=== PATIENT | female | born 1945 | race Caucasian/White ===

== ENCOUNTER 2018-02-17 11:39 | Inpatient (IN) ==
--- NOTE | 2018-02-17 08:42 | Discharge Summary ---
Orders not resulted at time of discharge: Pending orders 02/17/18 08:18 XR shoulder complete RT [XR] Routine Hemoglobin and Hematocrit [HEME] Routine Date of Encounter: 02/18/18 Time of Encounter: 08:11 - Discharge Diagnosis (1) Rotator cuff tear arthropathy of right shoulder Priority: Primary Status: Chronic (2) Status post reverse total arthroplasty of right shoulder Priority: Primary Status: Acute (3) Old myocardial infarction Priority: Secondary Status: Chronic (4) CHF (congestive heart failure), NYHA class II Priority: Secondary Status: Chronic Qualifiers: Congestive heart failure type: combined Congestive heart failure chronicity : chronic Qualified Code(s): I50.42 - Chronic combined systolic (congestive) and diastolic (congestive) heart failure (5) Morbid obesity with BMI of 40.0-44.9, adult Priority: Secondary Status: Chronic (6) Hypertension Priority: Secondary Status: Chronic Qualifiers: Hypertension type: unspecified Qualified Code(s): I10 - Essential (primary ) hypertension (7) Hyperlipidemia Priority: Secondary Status: Chronic Qualifiers: Hyperlipidemia type: unspecified Qualified Code(s): E78.5 - Hyperlipidemia , unspecified (8) COPD (chronic obstructive pulmonary disease) Priority: Secondary Status: Chronic Qualifiers: COPD type: unspecified COPD Qualified Code(s): J44.9 - Chronic obstructive pulmonary disease, unspecified (9) Chronic kidney disease, stage III (moderate) Priority: Secondary Status: Chronic (10) Type 2 diabetes mellitus Priority: Secondary Status: Chronic Qualifiers: Diabetes mellitus continuous churn buttermaker insulin use: unspecified longterm insulin use status Diabetes mellitus complication status: without complication Qualified Code(s): E11.9 - Type 2 diabetes mellitus without complications - Hospital Course Hospital course: Ms. Lock is a 72 year old female The patient had an uneventful postoperative course. They received antibiotics and physical therapy and were discharged in stable condition. There will follow -up in the office in 2 weeks. - Time Spent with Patient Total time spent providing and/or coordinating discharge services: - Discharge Medications Home Medications: Albuterol Sulfate [Ventolin Hfa] 1 puff IH DAILY 12/05/15 [History] Atorvastatin [Lipitor] 20 mg PO HS 12/05/15 [History] Budesonide/Formoterol 160/4.5 [Symbicort 160/4.5] 2 puff IH BID 12/05/15 [ History] Calcium Carbonate [Calcium] 600 mg PO QAM 12/05/15 [History] Glimepiride [Amaryl] 4 mg PO QAM 12/05/15 [History] Insulin ASPART [Novolog] 30 unit SQ QAM 12/05/15 [History] Lisinopril [Zestril] 20 mg PO DAILY 12/05/15 [History] Meloxicam [Mobic] 7.5 mg PO DAILY #10 tablet 12/05/15 [Rx] Metoclopramide [Reglan] 10 mg PO TID 12/05/15 [History] Metoprolol [Lopressor] 50 mg PO QAM 12/05/15 [History] Montelukast [Singulair] 10 mg PO DAILY 12/05/15 [History] Potassium Chloride [Klor-Con] 10 meq PO QAM 12/05/15 [History] Ropinirole HCl [Requip] 1 mg PO BID 12/05/15 [History] hydroCHLOROthiazide [Hydrochlorothiazide] 25 mg PO DAILY 12/05/15 [History] Promethazine [Phenergan] 12.5 mg PO Q8HR #16 tablet 12/06/15 [Rx] Acetaminophen [8 Hour] 650 mg PO DAILY #7 tablet.er 02/07/18 [Rx] Furosemide [Lasix] 20 mg PO DAILY 02/17/18 [History] HYDROcodone/Acet 5/325 mg [[place] 5-325 mg] 1 tab PO Q6H PRN 4 Days #20 tab 02/17 [Rx] HYDROcodone/Acet 5/325 mg [[place] 5-325 mg] 1 tab PO Q6H PRN 5 Days #20 tab 02/17 [Rx] Insulin ASPART [Novolog Flexpen] 50 unit SQ QPM 02/17/18 [History] Linagliptin [Tradjenta] 5 mg PO DAILY 02/17/18 [History] Allergies/Adverse Reactions: 3 Allergy/AdvReac Type Severity Reaction Status Date / Time codeine Allergy Difficulty Verified 02/17/18 13:50 Breathing Penicillins [PCN] Allergy Difficulty Verified 02/17/18 13:50 Breathing aspirin [From Percodan] AdvReac Nausea Verified 02/17/18 13:50 Oxycodone [From Percodan] AdvReac Nausea Verified 02/17/18 13:50 Primary care physician: Edna Rey CNP - Patient Status Disposition: Home, Self-Care Condition: Good Functional capacity at discharge: uses cane/walker Overall status at discharge: patient is progressing back to baseline - Discharge Instructions Follow Up With: Edna Rey CNP [Primary Care Provider] -
--- NOTE | 2018-02-17 11:08 | Anesthesia Evaluation PreOp ---
Date of Encounter: 02/17/18 Time of Encounter: 12:37 - Past History Planned Operation: Right Total Shoulder Cardiac History: NV, CHF (15 years ago), HTN, Hyperlipidemia Pulmonary History: Former smoker (quit 25 years ago), COPD (home O2 2L/min continuously), JANNET Dx (uses CPAP) CARROTER History: Denies Any Significant HX Other Medical History: Renal (stage 3 CKD), Diabetes Type II, GERD, Other ( obesity BMI=44.3) Anesthesia History: No Prior Anesthetic Complications, Past Anesthesia Alcohol Use: none Drug use: none Medications and Allergies Albuterol Sulfate [Ventolin Hfa] 18 gm IH BID 12/05/15 [History] Atorvastatin [Lipitor] 20 mg PO HS 12/05/15 [History] Budesonide/Formoterol 160/4.5 [Symbicort 160/4.5] 1 puff IH BIDR 12/05/15 [ History] Calcium Carbonate [Calcium] 600 mg PO QAM 12/05/15 [History] Glimepiride [Amaryl] 4 mg PO QAM 12/05/15 [History] Hydrocodone/Acetaminophen [[place] 5-325 Tablet] 1 tab PO Q6HR PRN #16 tab [Rx] Insulin ASPART [Novolog] 0 unit SQ TID 12/05/15 [History] Insulin Glargine,Hum.rec.anlog [Lantus Solostar] 20 unit SQ QAM 12/05/15 [ History] Insulin Glargine,Hum.rec.anlog [Lantus Solostar] 60 unit SQ HS 12/05/15 [History ] Lisinopril [Zestril] 20 mg PO DAILY 12/05/15 [History] Meloxicam [Mobic] 7.5 mg PO DAILY #10 tablet 12/05/15 [Rx] Metoclopramide [Reglan] 10 mg PO TID 12/05/15 [History] Metoprolol [Lopressor] 50 mg PO QAM 12/05/15 [History] Montelukast [Singulair] 10 mg PO DAILY 12/05/15 [History] Potassium Chloride [Klor-Con] 10 meq PO QAM 12/05/15 [History] Ropinirole HCl [Requip] 1 mg PO BID 12/05/15 [History] hydroCHLOROthiazide [Hydrochlorothiazide] 25 mg PO DAILY 12/05/15 [History] Gabapentin [Neurontin] 100 mg PO BID #20 capsule 12/06/15 [Rx] Promethazine [Phenergan] 12.5 mg PO Q8HR #16 tablet 12/06/15 [Rx] Acetaminophen [8 Hour] 650 mg PO DAILY #7 tablet.er 02/07/18 [Rx] HYDROcodone/Acet 5/325 mg [[place] 5-325 mg] 1 tab PO Q6H PRN 4 Days #20 tab 02/17 [Rx] HYDROcodone/Acet 5/325 mg [[place] 5-325 mg] 1 tab PO Q6H PRN 5 Days #20 tab 02/17 [Rx] 3 Allergy/AdvReac Type Severity Reaction Status Date / Time codeine Allergy Rash Verified 02/01/18 14:26 Penicillins [PCN] Allergy Rash Verified 02/01/18 14:26 aspirin [From Percodan] AdvReac Nausea Verified 02/01/18 14:26 Oxycodone [From Percodan] AdvReac Nausea Verified 02/01/18 14:26 - Meds/Allergy Pre-op Review Medications Reviewed: Yes Allergies Reviewed: Yes Beta Blockers on Current Med List: No Anesthesia Results - Labs Laboratory Tests 02/01/18 02/01/18 02/03/18 14:40 14:40 12:39 WBC 14.0 H Hgb 15.4 Hct 46.5 H Plt Count 239 PT 11.1 INR 1.0 APTT 29.7 Sodium 137 Potassium 4.4 BUN 39 H Creatinine 1.51 H - Imaging EKG: report reviewed (02/01/2018 SINUS RHYTHM MARKED LEFT AXIS DEVIATION INCOMPLETE RIGHT BUNDLE BRANCH BLOCK POSSIBLE ANTERIOR MYOCARDIAL INFARCTION, PROBABLY OLD MODERATE T-WAVE ABNORMALITY, CONSIDER LATERAL ISCHEMIA) Anesthesia Exam O2 Sat Height 1.57 m Height 1.57 m Weight 109.769 kg Weight 109.769 kg O2 Sat by Pulse Oximetry 91 Vital Signs Temp Pulse Resp BP Pulse Ox 98.3 F 86 18 125/72 91 02/17/18 12:11 02/17/18 12:11 02/17/18 12:11 02/17/18 12:11 02/17/18 12:11 Blood Glucose* 171 Height: 5'2'' Weight: 242 lbs NPO (# of Hours): 8 Pain Scale: 0 Pain Scale Used: Numeric (1 - 10) - HEENT Pupil (Motor): EOMI Mallampati: III Teeth: Edentulous Denture Type: Upper: Complete, Lower: Complete Oral Opening: Greater than 3 - CARROTER LOC: Oriented CARROTER Motor: Normal RUE, Normal LUE, Normal RLE, Normal LLE, Normal Face CARROTER Sensory: Normal: RUE, LUE, Face, Deficit: RLE, LLE - Cardiac Rhythm: Regular Murmur: None - Pulmonary Breath Sounds: bilateral Clear Respiratory Effort: Symmetrical Anesthesia Assess/Plan ASA Score: 4 Modified [place]ie Scale for Level of Consciousness: Cooperative, oriented, and tranquil Anesthetic Plan: General, Regional Monitoring Plan: Standard Monitors Recovery Plan: PACU
[2018-02-17] MEDS ORDERED: Albuterol 2.5 MG/3 ML NEBULIZER IH ONE (12:18)
--- NOTE | 2018-02-17 12:30 | History & Physical Report ---
Date of Encounter: 02/17/18 Time of Encounter: 12:29 24 Hour HP Update - Instructions Instructions: If the History and Physical is less than 30 days old and was completed prior to A.M. admission and or procedure and has NOT been updated on calendar day of procedure please complete this update prior to performing procedure. - Update Patient reports changes in Medical Condition: No Changes in examination, assessment, or condition: No Changes in Medication: No Preop tests/diagnostics Reviewed: Yes Surgery Remains Indicated: Yes Consent for Planned Operative Procedure(s) Verified: Yes - Pre-Operative Checklist Preoperative Checklist Indicated: No Prophylactic Antibiotic Ordered: Yes Is VTE Prophylaxis Indicated?: Yes
[2018-02-17] MEDS ORDERED: Clindamycin 900 MG/50 ML 900 MG/50 ML IV.SOLN IVPB ONE (12:45)
[2018-02-17] MEDS ORDERED: 0.9 % Sodium Chloride 500 ML IVC SCH (12:45)
[2018-02-17] MEDS ORDERED: *HR* FentaNYL (PF) 100 MCG/2 ML VIAL ONE ×2 (13:33→13:34)
[2018-02-17] MEDS ORDERED: *HR* Propofol 200 MG/20 ML VIAL IVP ONE (13:33)
[2018-02-17] MEDS ORDERED: *HR* Rocuronium Bromide 50 MG/5 ML VIAL ONE (13:36)
[2018-02-17] MEDS ORDERED: *HR* Succinylcholine 200 MG/10 ML VIAL IVP ONE (13:36)
[2018-02-17] MEDS ORDERED: Lidocaine -MPF 4% 5 ML AMPUL ONE (13:36)
[2018-02-17] MEDS ORDERED: Lidocaine -MPF 2% 2 ML VIAL ONE (13:36)
[2018-02-17] MEDS ORDERED: *HR* Midazolam HCl 2 MG/2 ML VIAL ONE (13:50)
[2018-02-17] MEDS ORDERED: ROPIVACAINE HCL/PF 0.5% 30 ML VIAL ONE (13:51)
[2018-02-17] MEDS ORDERED: Bupivacaine/Clonidine Syringe 1 EACH SYRINGE ONE (13:51)
--- NOTE | 2018-02-17 14:07 | Anesthesia Procedures ---
Date of Encounter: 02/17/18 Time of Encounter: 14:05 Procedures: Anesthesia - Nerve Block Procedure Date: 02/17/18 Time: 14:05 Allergies/Adv Reactions: codeine, pcn, asa, oxycodone Surgical Procedure: right tsr Checklist: Correct Patient Identifier, Correct procedure, History checked Correct side: Right Blood Thinner: No Monitor Applied: EKG, BP, Pulse Oximetry Supplemental Oxygen via Nasal Cannula (L/min): 2 Sedation: Versed (mg): 1 Sedation: Fentanyl (mcg): 50 Indication: Post Op Analgesia (request per dr masters for post op pain control) Pre-op Neuro Deficits: No Block Type: Supraclavicular, Other (scp/icb) Catheter placed: No Sterile Technique: Yes Ultrasound used: Yes Anatomy identified: Yes Visual spread of Local: Yes Neuro Stimulation: No Blood on Needle Aspiration: No Smooth Injection of Local: Yes Pain with Injection of Local: No Prep: Chlorhexadine Needle: 22 x 50 mm Stimuplex Local: 0.25% Bupivicaine w/Clonidine 20 mcg/cc (for scp/icb 10ml), Ropivacaine ( 0.5% 30ml) Volume (cc): 40 Number of Attempts: 1 Complications: None/effective block Vitals: Vital Signs/O2 Sat/Glucose, Most Current Temp Pulse Resp BP Pulse Ox 02/17/18 14:04 89 18 166/99 91 02/17/18 13:56 84 18 147/93 91 02/17/18 13:06 18 95 02/17/18 12:48 95 02/17/18 12:11 98.3 F 86 18 125/72 91 Comments: pt tolerated procedure well. no complications. vss.
[2018-02-17] MEDS ORDERED: *HR* HYDROmorphone 2 MG TABLET PO PRN (14:29)
[2018-02-17] MEDS ORDERED: *HR* Labetalol 20 MG/4 ML SYRINGE IVP PRN (14:29)
[2018-02-17] MEDS ORDERED: *HR* Promethazine 25 MG/ML VIAL IVP PRN (14:29)
[2018-02-17] MEDS ORDERED: *HR* HYDROmorphone (PF) 1 MG/ML SYRINGE IVP PRN (14:29)
[2018-02-17] MEDS ORDERED: Ondansetron 4 MG/2 ML VIAL ONE (15:18)
[2018-02-17] MEDS ORDERED: Dexamethasone 4 MG/ML VIAL ONE (15:18)
--- NOTE | 2018-02-17 15:52 | Orthopedic Operative Note ---
Date of procedure: 02/17/18 Pre-op diagnosis: Right shoulder cuff tear arthropathy Post-op diagnosis: same Procedure: Procedure: Total Shoulder Replacment Reverse, right Estimated blood loss: 100 cc Hardware: Metal and polyethylene replacement: Arthrex 24, +2 ,30 mm screw glenoid baseplate, 2 4.5 screws. 2 5.5 screw, 39+4 glenosphere, 9 apex humeral stem, poly insert 6 Exam Under anesthesia: Full motion no instability Procedural Notes: Irreparable tear supraspinatus tendon. Operative procedure: The patient was brought to the operating room and placed on the operating room table. After general anesthesia was administered the operative shoulder was examined. Findings were noted. The patient was placed in the modified beachchair position. All pressure points were padded appropriately. And the head was stabilized in the neutral position. The operative extremity was prepped and draped in the sterile surgical fashion. The patient received IV antibiotics prior to skin incision. A standard deltopectoral approach was made to the operative shoulder. Incision was made to the skin and subcutaneous tissue,hemo stasis was obtained with Bovie cautery. Using careful blunt dissection the cephalic vein was identified and mobilized medially. The deltopectoral interval was developed and the clavipectoral fascia was incised. The subscap was released off the lesser tuberosity and tagged with #2 FiberWire suture Was irreparable.. The humerus was dislocated patient noted to have irreparable tear supraspinatus tendon, and the humeral cut was made along the anatomic neck. Anterior and posterior Bankart retractors were placed to expose the glenoid. The glenoid guide was seated and the centering hole was made. It was reamed with the appropriate reamer. The 24, +2, 30 mm screw, base plate was seated and secured with (2) 4.5 screws and 2 5.5 screw. The baseplate was irrigated and dried and the 39+4 Glenosphere was seated and secured with the Carbajal taper. The Carbajal taper was tested and found to be secure the humerus was redislocated and prepared with the diaphyseal reamers, followed by a broaching process up to the appropriate size 9 apex in the patient 's anatomic version. The metaphyseal reamer was then utilized. Trial reduction found the shoulder to be relocatable. Trial components were removed and 9 apex stem was impacted in place in the patient's anatomic version. Trial reduction found the shoulder to be relocatable and stable with the appropriate 6 Madeleine. Trial component was removed and the real implant was seated and secured the shoulder was reduced. The shoulder had excellent motion and excellent stability and no evidence of dislocation. The deep tissue was irrigated with pulse irrigation. The deltopectoral interval was closed with a running #1 PDS suture, subcutaneous tissue was irrigated and closed with 0 PDS suture, the skin was closed with Dermabond. The patient was placed in a sterile dressing, abduction brace and extubated. The patient was then transferred to the recovery room in stable condition. Anesthesia: GETA Surgeon: Andrea Gallagher Was there an clinical services assistant present: No Estimated blood loss (cc): 100 Condition: stable Disposition: PACU
[2018-02-17 16:38] LABS: Hematocrit 39.6 % (35.3-44.9); Hemoglobin 13.1 g/dL (11.5-15.4)
--- NOTE | 2018-02-17 16:47 | Anesthesia Evaluation Post Op ---
Date of Encounter: 02/17/18 Time of Encounter: 16:46 - Vital Signs Vital Signs: Vital Signs/O2 Sat, Most Current Temp Pulse Resp BP Pulse Ox 97.3 F L 87 20 130/78 91 02/17/18 16:30 02/17/18 16:40 02/17/18 16:40 02/17/18 16:40 02/17/18 16:40 - Lungs Lungs: Clear Ascult./Percussion - Airway Airway: Non-obstructed - Cardiovascular Regular Rate - Mental Status Mental Status: Alert & Oriented, Answers Appropriately - Pain Pain Scale: 3 Pain Scale used: Numeric (1 - 10) - Nausea Vomiting Nausea Vomiting: Not Present - Hydration Hydration: Ice chips, Has not voided - Discharge PostOp Status: Transfer Patient to floor
[2018-02-17] MEDS ORDERED: traMADol 50 MG TABLET PO PRN (16:57)
[2018-02-17] MEDS ORDERED: Sennosides 8.6 MG TABLET PO PRN (16:57)
[2018-02-17] MEDS ORDERED: *HR* HYDROcodone/Acet 10/325 mg TABLET PO PRN (16:57)
[2018-02-17] MEDS ORDERED: Temazepam 15 MG CAPSULE PO PRN (16:57)
[2018-02-17] MEDS ORDERED: *HR* Dextrose 50 % in Water (Syg) 50 ML SYRINGE IVP PRN (16:57)
[2018-02-17] MEDS ORDERED: D5% in Water 1,000 ML IVC PRN (16:57)
[2018-02-17] MEDS ORDERED: *HR* HYDROcodone/Acet 5/325 mg TABLET PO PRN (16:57)
[2018-02-17] MEDS ORDERED: MOM Conc 10 ML UD.LIQ PO PRN (16:57)
[2018-02-17] MEDS ORDERED: Dextrose Gel 15 GM/37.5 ML TUBE PO PRN ×2 (16:57)
[2018-02-17] MEDS ORDERED: Ringers Solution, Lactated 1,000 ML IVC SCH (16:57)
[2018-02-17] MEDS ORDERED: Ondansetron 4 MG/2 ML VIAL IVP PRN (16:57)
[2018-02-17] MEDS ORDERED: Naloxone 0.4 MG/ML INJ IVP PRN (16:57)
[2018-02-17] MEDS ORDERED: INSULIN ASPART 50 UNIT SQ SCH (18:00)
[2018-02-17] MEDS ORDERED: *HR* Enoxaparin 30 MG/0.3 ML SYRINGE SQ SCH (18:00)
[2018-02-17] MEDS ORDERED: Ipratropium/Albuterol Neb 3 ML IH PRN (19:52)
[2018-02-17] MEDS: rOPINIRole 1 MG TABLET PO SCH (19:59)
[2018-02-17] MEDS: *HR* Enoxaparin 30 MG/0.3 ML SYRINGE SQ SCH (20:04)
[2018-02-17] MEDS: Insulin LISPRO 300 UNITS/3 ML VIAL SQ SCH (20:06)
[2018-02-17] MEDS: Budesonide/Formoterol 160/4.5 1 PUFF INH IH SCH (20:58)
[2018-02-17] MEDS ORDERED: Insulin LISPRO 300 UNITS/3 ML VIAL SQ SCH (21:00)
[2018-02-17] MEDS: Clindamycin 900 MG/50 ML 900 MG/50 ML IV.SOLN IVPB SCH (23:23)
[2018-02-18 01:07] LABS: Hematocrit 38.7 % (35.3-44.9); Hemoglobin 12.8 g/dL (11.5-15.4)
[2018-02-18] MEDS: *HR* Enoxaparin 30 MG/0.3 ML SYRINGE SQ SCH (04:57)
[2018-02-18] MEDS: Clindamycin 900 MG/50 ML 900 MG/50 ML IV.SOLN IVPB SCH (06:04)
--- NOTE | 2018-02-18 06:50 | Orthopedics Progress Note ---
Date of Encounter: 02/18/18 Time of Encounter: 06:50 - Assessment and Plan (1) Rotator cuff tear arthropathy of right shoulder Current Visit: No Status: Chronic (2) Status post reverse total arthroplasty of right shoulder Current Visit: No Status: Acute (3) Old myocardial infarction Current Visit: Yes Status: Chronic (4) CHF (congestive heart failure), NYHA class II Current Visit: Yes Status: Chronic Qualifiers: Congestive heart failure type: combined Congestive heart failure chronicity : chronic Qualified Code(s): I50.42 - Chronic combined systolic (congestive) and diastolic (congestive) heart failure (5) Morbid obesity with BMI of 40.0-44.9, adult Current Visit: Yes Status: Chronic (6) Hypertension Current Visit: Yes Status: Chronic Qualifiers: Hypertension type: unspecified Qualified Code(s): I10 - Essential (primary ) hypertension (7) Hyperlipidemia Current Visit: Yes Status: Chronic Qualifiers: Hyperlipidemia type: unspecified Qualified Code(s): E78.5 - Hyperlipidemia , unspecified (8) COPD (chronic obstructive pulmonary disease) Current Visit: Yes Status: Chronic Qualifiers: COPD type: unspecified COPD Qualified Code(s): J44.9 - Chronic obstructive pulmonary disease, unspecified (9) Chronic kidney disease, stage III (moderate) Current Visit: Yes Status: Chronic (10) Type 2 diabetes mellitus Current Visit: Yes Status: Chronic Qualifiers: Diabetes mellitus group home insulin use: unspecified group home insulin use status Diabetes mellitus complication status: without complication Qualified Code(s): E11.9 - Type 2 diabetes mellitus without complications Subjective Interval history: Patient was seen this morning doing well without complaints. Afebrile vital signs stable. Operative extremity: Neurovascularly intact Dressing clean dry and intact Calves nontender Assessment and plan: Continue with postoperative care Discharged today Objective Vital signs: Vital Signs Temp Pulse Resp BP Pulse Ox 02/18/18 03:41 98.4 F 89 18 123/76 91 02/18/18 00:03 98.4 F 103 18 120/66 91 02/17/18 23:26 91 02/17/18 21:25 19 92 02/17/18 21:09 18 89 02/17/18 20:58 16 90 02/17/18 19:48 97.7 F 106 20 140/85 02/17/18 19:36 92 02/17/18 19:20 97.7 F 106 20 142/88 94 02/17/18 17:46 92 16 129/79 87 02/17/18 17:19 98.5 F 88 16 149/85 88 02/17/18 17:04 98.5 F 90 16 131/75 88 02/17/18 16:40 87 20 130/78 91 02/17/18 16:30 97.3 F L 87 20 134/69 91 02/17/18 16:20 88 20 115/63 87 02/17/18 16:10 91 20 140/76 89 02/17/18 16:00 98.5 F 89 20 120/77 91 02/17/18 14:44 89 151/77 89 02/17/18 14:29 88 142/80 89 02/17/18 14:16 87 18 140/83 91 02/17/18 14:04 89 18 166/99 91 02/17/18 13:56 84 18 147/93 91 02/17/18 13:06 18 95 02/17/18 12:48 95 02/17/18 12:11 98.3 F 86 18 125/72 91 Intake and Output 02/17/18 02/17/18 02/18/18 15:59 23:59 07:59 Intake Total 360 / 360 850 / 850 Output Total 780 / 780 0 / 0 Balance -420 / -420 850 / 850 Intake: IV Fluids 50 / 50 Cleocin Premix 900 MG/50 ML 900 50 / 50 mg In 50 ml @ 50 mls/hr IVPB Q8H [facility] Rx#:[id number] Oral 360 / 360 800 / 800 Output: Urine 680 / 680 0 / 0 Estimated Blood Loss 100 / 100 Other: # Voids 1 Weight 109.769 kg 110.2 kg Blood Glucose* 171 373 Patient Weight 02/18/18 23:59 Weight 110.2 kg - Labs CBC & BMP: 02/18/18 00:41 Labs: Abnormal lab results POC Glucose 371 mg/dL (70-99) H 02/17/18 20:10 - VTE Documentation of Mechanical Device: Venous foot pump, device Consult Discharge Plan - Plan Referrals: Edna Rey, MEMBERSHIP CORRESPONDENT [Primary Care Provider] -
[2018-02-18] MEDS: Insulin LISPRO 300 UNITS/3 ML VIAL SQ SCH (08:15)
[2018-02-18] MEDS: rOPINIRole 1 MG TABLET PO SCH (08:59)
[2018-02-18] MEDS ORDERED: hydroCHLOROthiazide 25 MG TABLET PO SCH (09:00)
[2018-02-18] MEDS ORDERED: Furosemide 20 MG TABLET PO SCH (09:00)
[2018-02-18] MEDS ORDERED: TRADJENTA 5MG PO SCH (09:00)
[2018-02-18] MEDS ORDERED: *HR* Glimepiride 4 MG TABLET PO SCH (09:00)
[2018-02-18] MEDS ORDERED: INSULIN ASPART 30 UNIT SQ SCH (09:00)
[2018-02-18] MEDS ORDERED: Lisinopril 20 MG TABLET PO SCH (09:00)
--- NOTE | 2018-02-18 10:38 | Physician Discharge Referral ---
Home Health/Hosp Referral Info Transfer to: Home Health Attending Provider: Elliott - Diagnosis (1) Status post reverse total arthroplasty of right shoulder Priority: Primary Status: Acute (2) Rotator cuff tear arthropathy of right shoulder Priority: Primary Status: Chronic (3) CHF (congestive heart failure), NYHA class II Priority: Secondary Status: Chronic (4) COPD (chronic obstructive pulmonary disease) Priority: Secondary Status: Chronic (5) Chronic kidney disease, stage III (moderate) Priority: Secondary Status: Chronic (6) Hyperlipidemia Priority: Secondary Status: Chronic (7) Hypertension Priority: Secondary Status: Chronic (8) Morbid obesity with BMI of 40.0-44.9, adult Priority: Secondary Status: Chronic (9) Type 2 diabetes mellitus Priority: Secondary Status: Chronic - Respiratory Orders Smoking Cessation: Smoking cessation has been advised. For more information, call the [place] Tobacco Quit Line at 4-314-DGUL-NOW. - Diet/Nutrition Diet/Nutrition Orders: Regular - Activity Activity Orders: Ambulate, Chair - Services Needed Following services are medically necessary services: Nursing, Home Health Aide, Physical Therapy, Occupational Therapy Home Care Orders: Opsite dressing, leave intact until first post-operative visit. Zipline/Donovan in place, plan to remove at post-operative day #14-16. If dressing becomes >50% saturated, contact office, remove dressing and place appropriate dressing in its place. Do not allow for dressing to get wet. Shoulder Precautions x 6 weeks. Apply cold therapy wrap 3-6x/day for 20 minutes at a time. Encourage ambulation throughout the day. Use Incentive spirometer 10x/hour. Elevate affected extremity above heart as tolerated. NWB to affected upper extremity x 6 weeks. Will remove brace at first post-operative appointment. OK to remove during PT/ OT and Home exercises. - Transfer Medications Home Medications: Albuterol Sulfate [Ventolin Hfa] 1 puff IH DAILY 12/05/15 [History] Atorvastatin [Lipitor] 20 mg PO HS 12/05/15 [History] Budesonide/Formoterol 160/4.5 [Symbicort 160/4.5] 2 puff IH BID 12/05/15 [ History] Calcium Carbonate [Calcium] 600 mg PO QAM 12/05/15 [History] Glimepiride [Amaryl] 4 mg PO QAM 12/05/15 [History] Insulin ASPART [Novolog] 30 unit SQ QAM 12/05/15 [History] Lisinopril [Zestril] 20 mg PO DAILY 12/05/15 [History] Meloxicam [Mobic] 7.5 mg PO DAILY #10 tablet 12/05/15 [Rx] Metoclopramide [Reglan] 10 mg PO TID 12/05/15 [History] Metoprolol [Lopressor] 50 mg PO QAM 12/05/15 [History] Montelukast [Singulair] 10 mg PO DAILY 12/05/15 [History] Potassium Chloride [Klor-Con] 10 meq PO QAM 12/05/15 [History] Ropinirole HCl [Requip] 1 mg PO BID 12/05/15 [History] hydroCHLOROthiazide [Hydrochlorothiazide] 25 mg PO DAILY 12/05/15 [History] Promethazine [Phenergan] 12.5 mg PO Q8HR #16 tablet 12/06/15 [Rx] Acetaminophen [8 Hour] 650 mg PO DAILY #7 tablet.er 02/07/18 [Rx] Furosemide [Lasix] 20 mg PO DAILY 02/17/18 [History] HYDROcodone/Acet 5/325 mg [[place] 5-325 mg] 1 tab PO Q6H PRN 4 Days #20 tab 02/17 [Rx] HYDROcodone/Acet 5/325 mg [[place] 5-325 mg] 1 tab PO Q6H PRN 5 Days #20 tab 02/17 [Rx] Insulin ASPART [Novolog Flexpen] 50 unit SQ QPM 02/17/18 [History] Linagliptin [Tradjenta] 5 mg PO DAILY 02/17/18 [History] Allergies/Adverse Reactions: 3 Allergy/AdvReac Type Severity Reaction Status Date / Time codeine Allergy Difficulty Verified 02/17/18 13:50 Breathing Penicillins [PCN] Allergy Difficulty Verified 02/17/18 13:50 Breathing aspirin [From Percodan] AdvReac Nausea Verified 02/17/18 13:50 Oxycodone [From Percodan] AdvReac Nausea Verified 02/17/18 13:50 Certification: Further, I certify that my clinical findings support that this patient is homebound (i.e. absences from home require considerable and taxing effort and are for medical reasons or church services or infrequently or short duration when for other reasons) because: Homebound Reason: Post-surgery restriction and or conditions limit ability to leave home Attestation: My signature below is to certify that this patient is under my care and that I, or nurse practitioner, or a physician assistant case manager working with me, has a face-to- face encounter with this patient.
[2018-02-18] MEDS: Budesonide/Formoterol 160/4.5 1 PUFF INH IH SCH (11:01)
[2018-02-18 11:39] VITALS: BP 134/76
--- NOTE | 2018-02-18 16:40 | Event Note ---
Date of Encounter: 02/18/18 Time of Encounter: 12:25 PCR - POD#1 Total Shoulder Replacment Reverse, right Patient seen at bedside, without complaints. A&O x 3 Afebrile, vital signs stable. She is baseline 3L O2 at home. Dressings c/d/i . NV intact RUE Labs reviewed. H/H 12.8/38.7- stable, asymptomatic Pain control: adequate Participating in PT. Recommended to have hemiwalker and will receive instructions this afternoon before leaving All questions and concerns addressed. Educated on use of incentive spirometer. Encouraged ambulation and proper hydration. Patient educated on post-operative restrictions and post-operative care. Assessment and plan: Continue with postoperative care Discharge plan: Home with home health, discharge today.
== END 2018-02-18 14:55 | disposition home health service (06) | DRG 483 ==
LOC: SAMDAY 11:39 → 3NENU 16:52
PROVIDERS: ADMIT Orthopaedic Surgery; ATTEND Orthopaedic Surgery